=== PATIENT | male | born 1995 | race Asian ===

== ENCOUNTER 2017-04-12 19:07 | Emergency (ER) | payer OTHER ==
[~2017-04-12] VITALS: Ht 175.3 cm; Wt 102.1 kg
[2017-04-12 22:52] VITALS: BP 141/84
== END 2017-04-12 22:52 | disposition home or self-care (01) ==
LOC: EME 19:07
DX: S09.8XXA Other specified injuries of head, initial encounter (principal); V49.50XA Passenger injured in collision with unspecified motor vehicles in traffic accident, initial encounter; Y92.410 Unspecified street and highway as the place of occurrence of the external cause
CPT/HCPCS: 99281; 99283